=== PATIENT | male | born 1980 | race African-American/Black ===

== ENCOUNTER 2018-01-29 09:02 | Emergency (ER) | payer OTHER ==
[~2018-01-29] VITALS: Ht 170.2 cm; Wt 59.0 kg
[2018-01-29 09:02] VITALS: Ht 170.2 cm; Wt 59.0 kg
[2018-01-29 09:08] VITALS: PULSE 0
--- NOTE | 2018-01-29 09:17 | EMERGENCY ROOM VISIT NOTE ---
History Report prepared by Aidan: Herbert Randhawa Under the Supervision of: Dr. Bev Quintero M.D. First contact with patient: 09:11 Stated Complaint: CARDIAC ARREST History of Present Illness The patient is a 37 year old male who presents to the Emergency Room from [facility] in cardiac arrest. The patient arrives via EMS with a armoured corps officer that notes the patient has been in [facility] for the past 8-9 days. This makes him doubt that there has been any drug use. The patient was placed back in a regular cell today, and told his cellmate that he was tired and weak yesterday. He also noted that he was unable to have a bowel movement yesterday. The patient had a bowel movement today and then pass out on the ground. The last time known well was at 0600 this morning, over three hours ago. The patient was on RAMY when he arrived to the ED, and received 5 dosages of IV-Epinephrine prior to arrival. Time of was called at 0907. Source of History: EMS, other ([facility] personal banking officer) Onset: 0600, three hours ago Quality: other (Cardiac Arrest) Review of Systems Unable to obtain review of systems secondary to mental status. Past Medical & Surgical Unable to obtain due to mental status Social History Housing Status: other ([facility] Inmate) Occupation Status: other ([facility] Inmate) Current/Historical Medications Unable to Obtain Active Prescriptions or Reported Meds Physical Exam Vital Signs Date Time Temp Pulse Resp B/P (MAP) Pulse Ox O2 Delivery O2 Flow Rate FiO2 01/29/18 09:08 0 01/29/18 09:08 0 01/29/18 09:07 0 01/29/18 09:06 0 01/29/18 09:05 0 01/29/18 09:04 0 01/29/18 09:03 0 01/29/18 09:02 0 01/29/18 09:02 0 Physical Exam Ramy machine General: Unresponsive 37-year-old male, CPR in progress, intubated HEENT: No scleral icterus, ET tube. Atraumatic. Cardiovascular: No audible tones. Pulmonary: Clear bilaterally with Ambu bag, no respiratory effort. Abdomen: Distended, no tympany. Old laparotomy scar midline, no acute trauma apparent. Musculoskeletal: Atraumatic, no peripheral edema. Neurologic: Unresponsive Skin: Cool to touch, dry, generally atraumatic, no rash Medical Decision & Procedures Procedure BEDSIDE CARDIAC US: I performed a BEDSIDE CARDIAC US. This showed no cardiac motion. ED Course 902: Past medical records reviewed. The patient was evaluated in room B1. A complete history and physical examination was performed. 906: The patient's time of was called at 0907 1981. Medical Decision Evaluated this patient in room B1 after cardiac arrest. Patient was brought in by EMS with the Ramy machine in place. He was intubated in the field. He did receive 3 rounds of IV epinephrine prior to arrival. There has been no return of cardiac activity. Patient was given 1 mg of IV Narcan and 2 additional epinephrine amps without return of cardiac activity. Bedside echo was performed by me and verifies no cardiac motion. The cause of the arrest is unknown. The patient is at [facility] with no known past medical problems. He did have an unknown downtime prior to EMS arrival. Time of was called at 0907. Impression Primary Impression: Cardiac arrest Critical Care I have personally spent greater than 35 minutes of critical care time in the direct management of this patient. This includes bedside care, interpretation of diagnostic studies, and testing, discussion with consultants, patient, and family members, and other required patient management activities. This 35 minutes is in excess of all separately billable procedures. Scribe Attestation The scribe's documentation has been prepared under my direction and personally reviewed by me in its entirety. I confirm that the note above accurately reflects all work, treatment, procedures, and medical decision making performed by me. Departure Information Dispostion (TOD @ 0907) Prescriptions Unable to Obtain Active Prescriptions or Reported Meds Referrals No Doctor, Assigned (PCP)
[2018-01-29] MEDS ORDERED: PATIENT'S ALLERGY INFO NEEDS ENTERED SCH (09:30)
[2018-01-29] MEDS ORDERED: PATIENT'S HEIGHT AND/OR WEIGHT NEEDED SCH (09:30)
== END 2018-01-29 11:07 | disposition expired ==
LOC: C.EDB 09:06
DX: I46.9 Cardiac arrest, cause unspecified (principal)